=== PATIENT | male | born 1960 | race Caucasian/White ===

== ENCOUNTER 2018-10-26 16:29 | Emergency (ER) | payer BC ==
[~2018-10-26] VITALS: Ht 182.9 cm; Wt 99.8 kg
[2018-10-26 16:29] VITALS: BP 161/100
--- NOTE | 2018-10-26 18:24 | ED.ADGEN ---
Adult General Chief Complaint Chief Complaint Back pain HPI HPI 58 years old gentleman presented to the emergency department with back pain. After fall on Monday 2 days ago pain located in the right lower chest. Worse if he coughs or takes a deep breath he's experiencing muscle spasms as well no shortness of breath Review of Systems Review of Systems Constitutional: Denies fever or chills [] Eyes: Denies change in visual acuity, redness, or eye pain [] HENT: Denies nasal congestion or sore throat [] Respiratory: Denies shortness of breath [] Cardiovascular: No additional information not addressed in HPI [] GI: Denies abdominal pain, nausea, vomiting, bloody stools or diarrhea [] : Denies dysuria or hematuria [] Musculoskeletal: Denies back pain or joint pain [] Integument: Denies rash or skin lesions [] Neurologic: Denies headache, focal weakness or sensory changes [] Endocrine: Denies polyuria or polydipsia [] All other systems were reviewed and found to be within normal limits, except as documented in this note. Current Medications Current Medications Current Medications Medications (Trade) Dose Ordered Sig/Jose M Start Time Stop Time Status Last Admin Dose Admin Cyclobenzaprine HCl (Flexeril) 10 mg 1X ONCE 10/26/18 19:00 10/26/18 19:01 DC 10/26/18 18:36 10 MG Ketorolac Tromethamine (Toradol Im) 60 mg 1X ONCE 10/26/18 19:00 10/26/18 19:01 DC 10/26/18 18:36 60 MG Allergies Allergies Allergies Coded Allergies Type Severity Reaction Last Updated Verified No Known Drug Allergies 10/26/18 No Physical Exam Physical Exam Constitutional: Well developed, well nourished, no acute distress, non-toxic appearance. [] HENT: Normocephalic, atraumatic, bilateral external ears normal, oropharynx moist, no oral exudates, nose normal. [] Eyes: PERRLA, EOMI, conjunctiva normal, no discharge. [] Neck: Normal range of motion, no tenderness, supple, no stridor. [] Cardiovascular:Heart rate regular rhythm, no murmur [] Lungs & Thorax: Bilateral breath sounds clear to auscultation []chest wall tenderness on the right side Abdomen: Bowel sounds normal, soft, no tenderness, no masses, no pulsatile masses. [] Skin: Warm, dry, no erythema, no rash. [] Back: No tenderness, no CVA tenderness. [] Extremities: No tenderness, no cyanosis, no clubbing, ROM intact, no edema. [] Neurologic: Alert and oriented X 3, normal motor function, normal sensory function, no focal deficits noted. [] Psychologic: Affect normal, judgement normal, mood normal. [] Current Patient Data Vital Signs Vital Signs Date Time Temp Pulse Resp B/P (MAP) Pulse Ox O2 Delivery O2 Flow Rate FiO2 10/26/18 16:29 98.7 98 18 99 Room Air EKG EKG [] Radiology/Procedures Radiology/Procedures [] Course & Med Decision Making Course & Med Decision Making Pertinent Labs and Imaging studies reviewed. (See chart for details) [] Final Impression Final Impression [] Problems: (1) Contusion of rib on right side Qualifiers: Qualified Codes: S20.211A - Contusion of right front wall of thorax, initial encounter (2) Rib fracture Qualifiers: Qualified Codes: S22.31XA - Fracture of one rib, right side, initial encounter for closed fracture Dragon Disclaimer Dragon Disclaimer This electronic medical record was generated, in whole or in part, using a voice recognition dictation system. LUCHO DE LA PAZ MD Oct 26, 2018 18:24
[2018-10-26] MEDS ORDERED: HYDR-3165 PO (18:25)
[2018-10-26] MEDS ORDERED: CYCL-331 PO (18:25)
[2018-10-26] MEDS ORDERED: KETOROLAC 60 MG/2 ML VIAL. IM ONE (19:00)
[2018-10-26] MEDS ORDERED: CYCLOBENZAPRINE 10 MG TABLET. PO ONE (19:00)
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
== END 2018-10-26 19:35 | disposition home or self-care (01) ==
LOC: ER 16:29
DX: S22.31XA Fracture of one rib, right side, initial encounter for closed fracture (principal); M54.89 Other dorsalgia; W18.30XA Fall on same level, unspecified, initial encounter; Y93.89 Activity, other specified; Y92.89 Other specified places as the place of occurrence of the external cause; Y99.8 Other external cause status
CPT/HCPCS: 71101; 96372; 99283; J1885

== ENCOUNTER 2019-09-18 12:34 | Emergency (ER) | payer BC ==
[~2019-09-18] VITALS: Ht 182.9 cm; Wt 106.1 kg
[~2019-09-18 12:34] MED LIST: CYCL-331 PO; HYDR-3165 PO
--- NOTE | 2019-09-18 13:13 | RAD ---
Examination: ANKLE RIGHT 3V History: Fall, pain Comparison/Correlation: None Findings: 3 view right ankle x-rays and was performed by portable technique. Transverse displaced fracture of the medial malleolus is evident. Oblique fracture of the distal fibular diametaphyseal region is present with mild displacement. Widened ankle mortise noted. Bony densities along the dorsal aspect of the distal talus and talar neck of indeterminate age and significance. Impression: Severely displaced medial malleolar transverse fracture with associated widening of the ankle joint mortise. Oblique mildly displaced distal fibular fracture. Electronically signed by: Nehemias Garcia MD (09/18/2019 1:10 PM) [facility]
[2019-09-18] MEDS ORDERED: HYDROcodone/APAP 5/325MG 1 TAB TABLET PO ONE (13:15)
--- NOTE | 2019-09-18 13:19 | PHYS DOC ---
Past History Past Medical History: Hypertension, Seizure Past Surgical History: Appendectomy, Cholecystectomy Additional Smoking Information: Dips Alcohol Use: None Drug Use: None Adult General Chief Complaint Chief Complaint: ANKLE PROBLEM HPI HPI 66-year-old male presents with right ankle pain. Patient was out cutting wood and he stepped back and fell over a branch. He had immediate pain in the medial right ankle. He was unable to stand. He had a call back to his [id number] and drive himself home. He denies any other injuries or complaints. Review of Systems Review of Systems Constitutional: Denies fever or chills [] Eyes: Denies change in visual acuity, redness, or eye pain [] HENT: Denies nasal congestion or sore throat [] Respiratory: Denies cough or shortness of breath [] Cardiovascular: No additional information not addressed in HPI [] GI: Denies abdominal pain, nausea, vomiting, bloody stools or diarrhea [] : Denies dysuria or hematuria [] Musculoskeletal: Right ankle pain[] Integument: Denies rash or skin lesions [] Neurologic: Denies headache, focal weakness or sensory changes [] Endocrine: Denies polyuria or polydipsia [] All other systems were reviewed and found to be within normal limits, except as documented in this note. Current Medications Current Medications Current Medications Medications (Trade) Dose Ordered Sig/Jose M Start Time Stop Time Status Last Admin Dose Admin Acetaminophen/ Hydrocodone Bitart (Lortab 5/325) 1 tab 1X ONCE 09/18/19 13:15 09/18/19 13:16 DC Allergies Allergies Allergies Coded Allergies Type Severity Reaction Last Updated Verified No Known Drug Allergies 10/26/18 No Physical Exam Physical Exam Constitutional: Well developed, well nourished, no acute distress, non-toxic appearance. [] HENT: Normocephalic, atraumatic, bilateral external ears normal, oropharynx moist, no oral exudates, nose normal. [] Eyes: PERRLA, EOMI, conjunctiva normal, no discharge. [] Neck: Normal range of motion, no tenderness, supple, no stridor. [] Cardiovascular:Heart rate regular rhythm, no murmur [] Lungs & Thorax: Bilateral breath sounds clear to auscultation [] Abdomen: Bowel sounds normal, soft, no tenderness, no masses, no pulsatile masses. [] Skin: Warm, dry, no erythema, no rash. [] Back: No tenderness, no CVA tenderness. [] Extremities: Severe tenderness over the right medial ankle, swelling. [] Neurologic: Alert and oriented X 3, normal motor function, normal sensory fu nction, no focal deficits noted. [] Psychologic: Affect normal, judgement normal, mood normal. [] Current Patient Data Vital Signs Vital Signs Date Time Temp Pulse Resp B/P (MAP) Pulse Ox O2 Delivery O2 Flow Rate FiO2 09/18/19 13:00 98.0 78 16 98 Room Air 09/18/19 12:52 138/89 (105) EKG EKG [] Radiology/Procedures Radiology/Procedures [] Impressions: Examination: ANKLE RIGHT 3V History: Fall, pain Comparison/Correlation: None Findings: 3 view right ankle x-rays and was performed by portable technique. Transverse displaced fracture of the medial malleolus is evident. Oblique fracture of the distal fibular diametaphyseal region is present with mild displacement. Widened ankle mortise noted. Bony densities along the dorsal aspect of the distal talus and talar neck of indeterminate age and significance. Impression: Severely displaced medial malleolar transverse fracture with associated widening of the ankle joint mortise. Oblique mildly displaced distal fibular fracture. Electronically signed by: Nehemias Omer MD (09/18/2019 1:10 PM) [facility] DICTATED AND SIGNED BY: NEHEMIAS OMER MD DATE: 09/18/19 1310 CC: LUCIEN AVELAR DO; KRISTEN CHARLES MD ~ Course & Med Decision Making Course & Med Decision Making Pertinent Labs and Imaging studies reviewed. (See chart for details) The patient has an ankle fracture. We will attempt to reduce emplacement splint. I consult the with [facility], Dr. Jones for management. The patient was given 2 mg of morphine and 4 g of Zofran. I spoke with the surgeon and he does not believe the patient required immediate surgery. He agrees with reduction and splinting at this time. Ketamine was used for moderate sedation for the patient's comfort. They were able to slightly reduce the tibia fracture, but it was not very successful. The patient has good pulses on repeat exam. He will have close follow-up with orthopedics. I will not attempt additional reduction. The patient will follow up outpatient. I will discharge him with Santa 5/325. He is stable for discharge at this time. [] Dragon Disclaimer Dragon Disclaimer This electronic medical record was generated, in whole or in part, using a voice recognition dictation system. RISKS/ALTERNATIVES Risks/Alternatives Risks and alternatives of this type of sedation and procedure discussed with: RISK/ALTERNATIVES DISCUSSED: Patient H & P ON CHART H & P H & P on chart and reviewed for co-morbid conditions and appropriate labs. H&P ON CHART: Yes STATUS PREG STATUS ASSESSED: N/A MEDS/ALLERGIES REVIEWED Meds/Allergies Reviewed Medications and Allergies including time and route of recently administered narcotics and sedatives. MEDS/ALLERGIES REVIEWED: Yes ASA RATING ASA RATING: I AIRWAY ASSESSMENT Airway Assessment Airway patency, oral function limitations, presence of caps, crowns, dentures, partials, and ability to extend neck assessed. AIRWAY ASSESSMENT: Yes MALLAMPATI SCORE MALLAMPATI SCORE: II PRE-SEDATION ASSESSMENT PRE-SEDATION PHYSICAL: Yes Departure Departure: Impression: Primary Impression: Ankle fracture, bimalleolar, closed Disposition: 01 HOME, SELF-CARE Condition: STABLE Referrals: KRISTEN CHARLES MD (PCP) Patient Instructions: Ankle Fracture Additional Instructions: Please follow up with Dr. Jones. He would like you to call his office tomorrow. The phone number is [phone]. Scripts Hydrocodone Bit/Acetaminophen (NORCO 5-325 TABLET) 1 Each Tablet 1 TAB PO PRN Q6HRS PRN for PAIN, #14 TAB 0 Refills Prov: LUCIEN AVELAR DO 09/18/19 Problem Qualifiers Primary Impression: Ankle fracture, bimalleolar, closed Encounter type: initial encounter Laterality: right Qualified Codes: S82.841A - Displaced bimalleolar fracture of right lower leg, initial encounter for closed fracture LUCIEN AVELAR DO Sep 18, 2019 13:19
[2019-09-18 13:58] LABS: BASO # 0.1 x10^3/uL (0.0-0.2); BASO % 1 % (0-3); EOS % 0 % (0-3); HEMATOCRIT 47.1 % (39.0-53.0); HEMOGLOBIN 15.8 g/dL (13.0-17.5); LYMPH % 10 % (24-48); MEAN CORPUSCULAR HEMOGLOBIN 32 pg (25-35); MEAN CORPUSCULAR HGB CONC 34 g/dL (31-37); MEAN CORPUSCULAR VOLUME 94 fL (79-100); MONO # 0.7 x10^3/uL (0.0-1.1); MONO % 7 % (0-9); NEUT # 7.9 x10^3uL (1.8-7.7); NEUT % 82 % (31-73); PLATELET COUNT 174 x10^3/uL (140-400); RED BLOOD COUNT 4.99 x10^6/uL (4.30-5.70); WHITE BLOOD COUNT 9.6 x10^3/uL (4.0-11.0)
[2019-09-18] MEDS ORDERED: ONDANSETRON PF 4 MG/2 ML VIAL. IVP ONE (14:00)
[2019-09-18] MEDS ORDERED: MORPHINE SULFATE 2 MG/ML DISP.SYRIN. IV ONE ×2 (14:00→14:45)
[2019-09-18] MEDS ORDERED: IV NORMAL SALINE 1,000ML 1,000 ML IV ONE (14:00)
--- NOTE | 2019-09-18 14:03 | RAD ---
Single view of the chest. 09/18/2019 1:39 PM Indication: Preoperative Comparison: None Findings: There is no focal consolidation. There is no pleural effusion or pneumothorax. The cardiomediastinal silhouette and pulmonary vasculature are within normal limits. No acute osseous abnormalities are seen. Impression: No evidence of acute cardiopulmonary process. Electronically signed by: Luis Matthews MD (09/18/2019 2:00 PM) [id number]
[2019-09-18] MEDS ORDERED: HYDR-3165 PO (14:04)
[2019-09-18 14:10] LABS: ALBUMIN 3.8 g/dL (3.4-5.0); ALBUMIN/GLOBULIN RATIO 1.2 (1.0-1.7); CALCIUM 8.3 mg/dL (8.5-10.1); GFR 76.2; POTASSIUM 4.1 mmol/L (3.5-5.1); TOTAL BILIRUBIN 0.4 mg/dL (0.2-1.0); TOTAL PROTEIN 7.1 g/dL (6.4-8.2)
[2019-09-18] MEDS ORDERED: KETAMINE HCL 500 MG/10 ML VIAL. ONE (15:22)
[2019-09-18] MEDS ORDERED: KETAMINE HCL 500 MG/10 ML VIAL. IV ONE (15:30)
--- NOTE | 2019-09-18 16:07 | RAD ---
Examination: ANKLE RIGHT 2V History: Postreduction. Fractures. Comparison/Correlation: None Findings: Portable frontal and lateral views of the right ankle were obtained. Overlying cast material may limit fine detail. There is no significant reduction of the medial or lateral malleolar fractures. Slightly greater widening of the ankle joint mortise on the lateral view suggested in the interval. Posterior malleolar fracture is not as well delineated on the lateral view. Impression: No significant reduction of medial or lateral malleolar fractures. Electronically signed by: Nehemias Garcia MD (09/18/2019 4:04 PM) [facility]
--- NOTE | 2019-09-18 16:22 | EKG ---
[address] [address] Test Date: 2019-09-18 Test Time: 13:38:14 Pat Name: STEPH TORRES Department: Room: Gender: M Communications Administrator: DERRICK : 1960 Requested By: LUCIEN AVELAR Order Number: [id number] Reading MD: Gabriel Stephenson MD Measurements Intervals [place] Rate: 73 P: 25 MN: 188 QRS: 23 QRSD: 86 T: 20 QT: 356 QTc: 396 Interpretive Statements SINUS RHYTHM Electronically Signed On 09-23-2019 9:22:02 RIVETER HAND by Gabriel Stephenson MD
[2019-09-18 16:24] VITALS: BP 160/97
== END 2019-09-18 16:30 | disposition home or self-care (01) ==
LOC: ER 12:34
DX: S82.841A Displaced bimalleolar fracture of right lower leg, initial encounter for closed fracture (principal); I10 Essential (primary) hypertension; F17.200 Nicotine dependence, unspecified, uncomplicated; W18.39XA Other fall on same level, initial encounter; Y93.89 Activity, other specified; Y92.89 Other specified places as the place of occurrence of the external cause; Y99.8 Other external cause status
CPT/HCPCS: 27810; 36415; 71045; 73600; 73610; 80053; 85025; 85610; 85730; 93005; 96374; 96375; 99285; J2270; J2405; J3490; 99152; J7030